=== PATIENT | female | born 1945 | race Caucasian/White ===

== ENCOUNTER 2016-12-11 10:16 | Emergency (ER) | payer MEDICARE ==
[2016-12-11 10:53] LABS: Bilirubin Negative (Negative); Blood, Urine Trace (Negative); Glucose, Urine (Dipstick) Negative (Negative); Leukocyte Negative (Negative); Nitrite Negative (Negative); Protein, Urine (Dipstick) Negative (Neg-Trace); Urobilinogen 0.2 mg/dL (0.2-1.0)
[2016-12-11 10:58] LABS: Bacteria/HPF 1+ HPF (None Seen); Clarity Hazy (Clear); Renal Epithelial 0-3 HPF (0-3); Transitional Epithelial 0-3 HPF (0-3); Yeast-All Forms 2+ HPF (None Seen)
[2016-12-11] MEDS ORDERED: Phenazopyridine HCl 97.5 MG TABLET ONE (11:21)
[2016-12-11] MEDS ORDERED: Sulfameth/Trimethoprim DS 800-160mg TAB ONE (11:21)
[2016-12-11] MEDS ORDERED: Fluconazole 100 MG TAB ONE (11:21)
--- NOTE | 2016-12-11 11:51 | ERRECORD ---
[facility] EMERGENCY RECORD HPI UTI (10:38 LLDO) CHIEF COMPLAINT: Patient presents for evaluation of urinary tract infection signs or symptoms:, dysuria, frequency, hematuria, urine odor, Patient presents for evaluation of started about 10 days ago. had some left flank [ain with sx started but none now. several days ago had some hematuria but thinks that is from her scratching. HISTORIAN: History provided by patient, History provided by patient's spouse. LOCATION: Symptoms are generalized. QUALITY: Pain is dull in nature, described as aching, described as BURNING. SEVERITY: Maximum severity of symptoms severe, Currently symptoms are moderate. TIME COURSE: Sudden onset of symptoms, There has been no change in the patient's symptoms over time, are constant. ASSOCIATED WITH FEMALE: No associated abdominal pain, No associated chills, No associated diarrhea, No associated flank pain, No associated fever, No associated night sweats, No associated trauma, No associated vaginal bleeding, No associated vaginal discharge, No associated vomiting, Denies any other complaints. EXACERBATED BY: Patient's condition exacerbated by urination. RELIEVED BY: Patient's condition relieved by nothing. ROS CONSTITUTIONAL: Negative constitutional review of systems. (10:40 LLDO) EYES: Negative eye review of systems, Historian denies eye pain, denies eye redness, denies eye discharge. (10:42 LLDO) ENT: Negative ears, nose, throat review of systems, Historian denies epistaxis, denies rhinorrhea, denies sinus pain, denies sore throat. (10:42 LLDO) CARDIOVASCULAR: Negative cardiovascular review of systems, Historian denies chest pain, no radiation, Historian denies diaphoresis, denies syncope. (10:42 LLDO) RESPIRATORY: Negative respiratory review of systems, Historian denies cough, denies shortness of breath, denies sputum. (10:42 LLDO) GI: Historian denies abdominal pain, denies anorexia, denies appetite changes, denies constipation, denies diarrhea, denies hematemesis, denies hematochezia, denies jaundice, denies melena, denies nausea, denies stool changes, denies vomiting. (10:40 LLDO) GENITOURINARY FEMALE: Historian reports dysuria, reports frequency, reports hematuria, reports hesitancy, denies menorrhagia, denies metrorrhagia, denies , reports urgency, denies urine output changes, denies urinary retention, denies vaginal bleeding, denies vaginal discharge, reports vaginal itching. (10:40 LLDO) MUSCULOSKELETAL: Negative musculoskeletal review of systems, Historian denies arthralgias, denies back pain, denies injury, denies myalgias, denies neck pain. (10:42 LLDO) &a-1R&a+25V*p+0X*e2188W*c202B*c15G*c2P*p-0X&a-25V&a+1R Name: Antonette Jacques : 1945 F71 MedRec: [id number] AcctNum: [id number] Prepared: Rosaline Dec 11, 2016 15:15 by Interface Page 1 of 4 pMD [facility] EMERGENCY RECORD SKIN: Negative skin review of systems, Historian denies cellulitis, denies rash, denies skin changes, denies skin lesions. (10:42 LLDO) NEUROLOGIC: Negative neurologic review of systems, Historian denies confusion, denies dizziness, denies focal weakness, denies mental status changes. (10:42 LLDO) HEMO/LYMPHATIC: Normal hematologic/lymphatic system review, Historian denies abnormal blood clotting, denies gum bleeding, denies petechiae. (10:42 LLDO) ALLERGIC/IMMUNOLOGIC: Normal allergy/immunologic system review, Historian denies eczema, denies environmental allergies, denies food allergies. (10:42 LLDO) PSYCHIATRIC: Negative psychiatric review of systems, Historian denies alcohol abuse, denies anxiety, denies depression, denies drug abuse, denies hallucinations. (10:42 LLDO) NOTES: All systems reviewed, negative except as described above. (10:40 LLDO) PAST MEDICAL HISTORY MEDICAL HISTORY: Past medical history includes endocrine disease, hypothyroidism, Past medical history includes history of hypertension. (10:27 SCHI) FEMALE SURGICAL HISTORY: Surgical history of hysterectomy, Surgical history of thyroidectomy. (10:27 SCHI) SOCIAL HISTORY: Patient denies alcohol use, Patient denies drug use, Patient has no smoking history. (10:27 SCHI) NOTES: Nursing records reviewed, Agree with nursing records, Medication list reviewed. (10:42 LLDO) KNOWN ALLERGIES No Known Drug Allergies CURRENT MEDICATIONS No recorded medications VITAL SIGNS (10:23 ADEA) VITAL SIGNS: BP: 177/85, Pulse: 97, Resp: 20, Temp: 98.7 (Tympanic), Pain: 0, O2 sat: 98 on Room Air, Time: 12/11/2016 10:23. PHYSICAL EXAM CONSTITUTIONAL: Vital signs reviewed, Patient afebrile, Pulse normal, Blood pressure, BP ELEVATED, Respiratory rate normal, Patient appears non toxic, Patient appears in pain, in moderate pain distress, Patient alert and oriented to person, place and time. (10:41 LLDO) HEAD: Head exam normal, Head exam included findings of head atraumatic, normocephalic. (10:42 LLDO) EYES: Eye exam normal, Eye exam included findings of eyelids normal to inspection, Pupils equally round and reactive to light, &a-1R&a+25V*p+0X*g8905C*c202B*c15G*c2P*p-0X&a-25V&a+1R Name: Antonette Jacques : 1945 F71 MedRec: [id number] AcctNum: [id number] Prepared: Rosaline Dec 11, 2016 15:15 by Interface Page 2 of 4 pMD [facility] EMERGENCY RECORD Extraocular muscles intact. (10:42 LLDO) ENT: ENT exam normal, Ear exam normal, Nose exam normal. (10:42 LLDO) NECK: Neck exam normal, Neck exam included findings of normal range of motion, Trachea midline, no meningeal signs, no tenderness. (10:42 LLDO) RESPIRATORY CHEST: Respiratory and chest exam normal, Respiratory exam included findings of, Chest exam included findings of chest movement symmetrical, Chest expansion equal. (10:42 LLDO) CARDIOVASCULAR: Cardiovascular assessment normal, Cardiovascular exam included findings of heart rate regular rate and rhythm, Heart sounds normal. (10:42 LLDO) ABDOMEN FEMALE: Abdominal exam included findings of abdomen nontender, Bowel sounds normal, Liver normal, Spleen normal, no distension, no mass, no pulsatile masses, no peritoneal signs, Rovsing's sign absent. (10:41 LLDO) BACK: Back exam normal, Back exam included findings of normal inspection, range of motion normal. (10:42 LLDO) UPPER EXTREMITY: Upper extremity exam normal, Upper extremity exam included findings of inspection normal, Range of motion normal. (10:42 LLDO) LOWER EXTREMITY: Lower extremity exam normal, Lower extremity exam included findings of inspection normal, Range of motion normal. (10:42 LLDO) NEURO: Neuro exam normal, Neuro exam findings include patient oriented to person, place and time, Speech normal, Esther coma scale 15. (10:42 LLDO) SKIN: Skin exam normal, Skin exam included findings of skin warm, dry, and normal in color, no rash. (10:42 LLDO) PSYCHIATRIC: Psychiatric exam normal, Psychiatric exam included findings of patient oriented to person place and time, Normal affect. (10:42 LLDO) MEDICATION ADMINISTRATION SUMMARY Drug Name: Septra DS, Dose Ordered: 1 tab(s), Route: Oral, Status: Ordered, Time: 11:04 12/11/2016, Drug Name: Pyridium, Dose Ordered: 200 mg, Route: Oral, Status: Ordered, Time: 11:04 12/11/2016, Drug Name: Diflucan, Dose Ordered: 200 mg, Route: Oral, Status: Ordered, Time: 11:03 12/11/2016, Detailed record available in Medication Service section. PROBLEM LIST No recorded problems DIAGNOSIS (11:05 LLDO) FINAL: PRIMARY: UTI SITE NOT SPECIFIED, ADDITIONAL: Vaginal candidiasis. &a-1R&a+25V*p+0X*a0900L*c202B*c15G*c2P*p-0X&a-25V&a+1R Name: Antonette Jacques : 1945 F71 MedRec: [id number] AcctNum: [id number] Prepared: Rosaline Dec 11, 2016 15:15 by Interface Page 3 of 4 pMD [facility] EMERGENCY RECORD PRESCRIPTION (11:09 LLDO) Monistat 7: COMBINATION PACK, PREFILLED APPL.& CREAM : 2 % (100 mg)-2 % (9 gram) : VAGINAL : Quantity: 1 Unit: chrissy Route: VAGINAL Schedule: See Notes Dispense: 1 May substitute. Refills: No Refills . NOTES: take as directed on package. Pyridium: TABLET : 100 mg : ORAL : Quantity: 1 Unit: tab(s) Route: ORAL Schedule: every 8 hours PRN Dispense: 15 May substitute. Refills: 1 . Septra DS: TABLET : 800 mg-160 mg : ORAL : Quantity: 1 Unit: tab(s) Route: ORAL Schedule: 2 times a day (before meals) Dispense: 20 Unit: tab(s) May substitute. Refills: No Refills . Tylenol-Codeine #3: TABLET : 300 mg-30 mg : ORAL : Quantity: 1-2 Unit: tab(s) Route: ORAL Schedule: every 4 hours prn Dispense: 24 Unit: tab(s) May substitute. Refills: No Refills . DISPOSITION PATIENT: Disposition Type: Discharge, Disposition: *Discharge Home. (11:05 TIFFANY) Patient left the department. (11:46 SIXTO) Blanco: CARLTON=JORDON Paul, Paxton ALLEN=MD Luís, Manan HENSON=JORDON Spann, Margaritaa &a-1R&a+25V*p+0X*n0659R*c202B*c15G*c2P*p-0X&a-25V&a+1R Name: Antonette Jacques : 1945 F71 MedRec: [id number] AcctNum: [id number] Prepared: Rosaline Dec 11, 2016 15:15 by Interface Page 4 of 4 pMD MTDD
--- NOTE | 2016-12-11 11:55 | PICIS ---
[facility] EMERGENCY RECORD TRIAGE (10:26 ADEA) TRIAGE NOTES: DISCHARGE POSSIBLE YEAST. (10:26 ADEA) PATIENT: NAME: Antonette Jacques, AGE: 71, GENDER: female, : Mon1945, TIME OF GREET: Sun Dec 11, 2016 10:17, PREFERRED LANGUAGE: Frisian, ETHNICITY: Not or , ECODE BILLING MAP: [facility], SSN: [id number], Zip Code: [address], KG WEIGHT: 82.10, PHONE: , , , PERSON ID: [id number], PCP: DR NELSON. (10:26 ADEA) COMPLAINT: DISCHARGE. (10:26 ADEA) ADMISSION: URGENCY: 4 Non Urgent, ADMISSION SOURCE: Home, TRANSPORT: Walk-in, BED: ED -05. (10:26 ADEA) ASSESSMENT: Assessment: ALERT AND ORIENTED X 4, SKIN WARM AND DRY RESP EVEN AND UNLABORED,. (10:27 SCHI) TRIAGE SCREENING: Patient denies suicidal ideation, Patient denies presence of domestic violence. (10:27 SCHI) PROVIDERS: TRIAGE NURSE: Paxton Paul RN. (10:26 ADEA) VITAL SIGNS: BP 177/85, Pulse 97, Resp 20, Temp 98.7, (Tympanic), Pain 0, O2 Sat 98, on Room Air, Time 12/11/2016 10:23. (10:23 ADEA) KNOWN ALLERGIES No Known Drug Allergies CURRENT MEDICATIONS No recorded medications VITAL SIGNS (10:23 ADEA) VITAL SIGNS: BP: 177/85, Pulse: 97, Resp: 20, Temp: 98.7 (Tympanic), Pain: 0, O2 sat: 98 on Room Air, Time: 12/11/2016 10:23. NURSING ASSESSMENT: GENITOURINARY (10:33 SCHI) CONSTITUTIONAL: Patient arrives ambulatory, Gait steady, History obtained from patient, Patient appears comfortable, Patient cooperative, Patient alert, Oriented to person, place and time, Skin warm, Skin dry, Skin normal in color, Mucous membranes pink, Mucous membranes moist, Patient is well-groomed, Patient complains of PAIN,PRESSURE, BURNING WITH URINATION. PAIN FEMALE: burning pain, itching pain, to the vagina. GENITOURINARY FEMALE: Associated with urinary complaints , burning. ABDOMEN: Abdomen soft, non-tender, no associated nausea. NOTES: Emotional support needed and given, Patient tolerated procedure well. SAFETY: Side rails up, Cart/Stretcher in lowest position, Family at bedside, Hospital ID band on. NURSING PROCEDURE: [facility] (10:37 [facility]) PATIENT IDENTIFIER: Patient actively involved in identification process, Patient's identity verified by patient stating name, &a-1R&a+25V*p+0X*y6075M*c202B*c15G*c2P*p-0X&a-25V&a+1R Name: Antonette Jacques : 1945 F71 MedRec: [id number] AcctNum: [id number] Prepared: Rosaline Dec 11, 2016 15:22 by Interface Page 1 of 6 pMD [facility] EMERGENCY RECORD Patient's identity verified by patient stating date, Patient's identity verified by hospital ID bracelet. URINE COLLECTION FEMALE: Urine collected by mid-stream clean catch, urine yellow in color, Specimen labeled in the presence of the patient and sent to lab. SAFETY: Side rails up, Cart/Stretcher in lowest position, Family at bedside, Hospital ID band on. ORDER DETAILS Order Name: Urinalysis w/ Rflx Microscopic, Status: Active, Time: 10:37 12/11/2016, User: [facility], - Ordered for: MD Staley Lloyd, - Entered by: JORDON Spann albert - Rosaline Dec 11, 2016 10:37, - Quantity: 1. MEDICATION ADMINISTRATION SUMMARY Drug Name: Septra DS, Dose Ordered: 1 tab(s), Route: Oral, Status: Ordered, Time: 11:04 12/11/2016, Drug Name: Pyridium, Dose Ordered: 200 mg, Route: Oral, Status: Ordered, Time: 11:04 12/11/2016, Drug Name: Diflucan, Dose Ordered: 200 mg, Route: Oral, Status: Ordered, Time: 11:03 12/11/2016, Detailed record available in Medication Service section. MEDICATION SERVICE Diflucan: Order: Diflucan (fluconazole) - Dose: 200 mg : Oral Schedule: Now Ordered by: Manan Staley MD Entered by: MD Rosaline Herrera Dec 11, 2016 11:03 , Acknowledged by: JORDON Skaggs Dec 11, 2016 11:19. Pyridium: Order: Pyridium (phenazopyridine HCl) - Dose: 200 mg : Oral Schedule: Now Ordered by: Manan Staley MD Entered by: MD Rosaline Herrera Dec 11, 2016 11:04 , Acknowledged by: JORDON Skaggs Dec 11, 2016 11:19. Septra DS: Order: Septra DS (sulfamethoxazole/trimethoprim) - Dose: 1 tab(s) : Oral Schedule: Now Ordered by: Manan Staley MD Entered by: MD Rosaline Herrera Dec 11, 2016 11:04 , Acknowledged by: JORDON Skaggs Dec 11, 2016 11:19. HPI UTI (10:38 LLDO) CHIEF COMPLAINT: Patient presents for evaluation of urinary tract infection signs or symptoms:, dysuria, frequency, hematuria, urine odor, &a-1R&a+25V*p+0X*g9403O*c202B*c15G*c2P*p-0X&a-25V&a+1R Name: Antonette Jacques : 1945 F71 MedRec: [id number] AcctNum: [id number] Prepared: Rosaline Dec 11, 2016 15:22 by Interface Page 2 of 6 pMD [facility] EMERGENCY RECORD Patient presents for evaluation of started about 10 days ago. had some left flank [ain with sx started but none now. several days ago had some hematuria but thinks that is from her scratching. HISTORIAN: History provided by patient, History provided by patient's spouse. LOCATION: Symptoms are generalized. QUALITY: Pain is dull in nature, described as aching, described as BURNING. SEVERITY: Maximum severity of symptoms severe, Currently symptoms are moderate. TIME COURSE: Sudden onset of symptoms, There has been no change in the patient's symptoms over time, are constant. ASSOCIATED WITH FEMALE: No associated abdominal pain, No associated chills, No associated diarrhea, No associated flank pain, No associated fever, No associated night sweats, No associated trauma, No associated vaginal bleeding, No associated vaginal discharge, No associated vomiting, Denies any other complaints. EXACERBATED BY: Patient's condition exacerbated by urination. RELIEVED BY: Patient's condition relieved by nothing. ROS CONSTITUTIONAL: Negative constitutional review of systems. (10:40 LLDO) EYES: Negative eye review of systems, Historian denies eye pain, denies eye redness, denies eye discharge. (10:42 LLDO) ENT: Negative ears, nose, throat review of systems, Historian denies epistaxis, denies rhinorrhea, denies sinus pain, denies sore throat. (10:42 LLDO) CARDIOVASCULAR: Negative cardiovascular review of systems, Historian denies chest pain, no radiation, Historian denies diaphoresis, denies syncope. (10:42 LLDO) RESPIRATORY: Negative respiratory review of systems, Historian denies cough, denies shortness of breath, denies sputum. (10:42 LLDO) GI: Historian denies abdominal pain, denies anorexia, denies appetite changes, denies constipation, denies diarrhea, denies hematemesis, denies hematochezia, denies jaundice, denies melena, denies nausea, denies stool changes, denies vomiting. (10:40 LLDO) GENITOURINARY FEMALE: Historian reports dysuria, reports frequency, reports hematuria, reports hesitancy, denies menorrhagia, denies metrorrhagia, denies , reports urgency, denies urine output changes, denies urinary retention, denies vaginal bleeding, denies vaginal discharge, reports vaginal itching. (10:40 LLDO) MUSCULOSKELETAL: Negative musculoskeletal review of systems, Historian denies arthralgias, denies back pain, denies injury, denies myalgias, denies neck pain. (10:42 LLDO) SKIN: Negative skin review of systems, Historian denies cellulitis, denies rash, denies skin changes, denies skin lesions. (10:42 LLDO) NEUROLOGIC: Negative neurologic review of systems, Historian &a-1R&a+25V*p+0X*v9050Z*c202B*c15G*c2P*p-0X&a-25V&a+1R Name: Antonette Jacques : 1945 F71 MedRec: [id number] AcctNum: [id number] Prepared: Rosaline Dec 11, 2016 15:22 by Interface Page 3 of 6 pMD [facility] EMERGENCY RECORD denies confusion, denies dizziness, denies focal weakness, denies mental status changes. (10:42 LLDO) HEMO/LYMPHATIC: Normal hematologic/lymphatic system review, Historian denies abnormal blood clotting, denies gum bleeding, denies petechiae. (10:42 LLDO) ALLERGIC/IMMUNOLOGIC: Normal allergy/immunologic system review, Historian denies eczema, denies environmental allergies, denies food allergies. (10:42 LLDO) PSYCHIATRIC: Negative psychiatric review of systems, Historian denies alcohol abuse, denies anxiety, denies depression, denies drug abuse, denies hallucinations. (10:42 LLDO) NOTES: All systems reviewed, negative except as described above. (10:40 LLDO) PAST MEDICAL HISTORY MEDICAL HISTORY: Past medical history includes endocrine disease, hypothyroidism, Past medical history includes history of hypertension. (10:27 SCHI) FEMALE SURGICAL HISTORY: Surgical history of hysterectomy, Surgical history of thyroidectomy. (10:27 SCHI) SOCIAL HISTORY: Patient denies alcohol use, Patient denies drug use, Patient has no smoking history. (10:27 SCHI) NOTES: Nursing records reviewed, Agree with nursing records, Medication list reviewed. (10:42 LLDO) PHYSICAL EXAM CONSTITUTIONAL: Vital signs reviewed, Patient afebrile, Pulse normal, Blood pressure, BP ELEVATED, Respiratory rate normal, Patient appears non toxic, Patient appears in pain, in moderate pain distress, Patient alert and oriented to person, place and time. (10:41 LLDO) HEAD: Head exam normal, Head exam included findings of head atraumatic, normocephalic. (10:42 LLDO) EYES: Eye exam normal, Eye exam included findings of eyelids normal to inspection, Pupils equally round and reactive to light, Extraocular muscles intact. (10:42 LLDO) ENT: ENT exam normal, Ear exam normal, Nose exam normal. (10:42 LLDO) NECK: Neck exam normal, Neck exam included findings of normal range of motion, Trachea midline, no meningeal signs, no tenderness. (10:42 LLDO) RESPIRATORY CHEST: Respiratory and chest exam normal, Respiratory exam included findings of, Chest exam included findings of chest movement symmetrical, Chest expansion equal. (10:42 LLDO) CARDIOVASCULAR: Cardiovascular assessment normal, Cardiovascular exam included findings of heart rate regular rate and rhythm, Heart sounds normal. (10:42 LLDO) ABDOMEN FEMALE: Abdominal exam included findings of abdomen &a-1R&a+25V*p+0X*h9495T*c202B*c15G*c2P*p-0X&a-25V&a+1R Name: Antonette Jacques : 1945 F71 MedRec: [id number] AcctNum: [id number] Prepared: Rosaline Dec 11, 2016 15:22 by Interface Page 4 of 6 pMD [facility] EMERGENCY RECORD nontender, Bowel sounds normal, Liver normal, Spleen normal, no distension, no mass, no pulsatile masses, no peritoneal signs, Rovsing's sign absent. (10:41 LLDO) BACK: Back exam normal, Back exam included findings of normal inspection, range of motion normal. (10:42 LLDO) UPPER EXTREMITY: Upper extremity exam normal, Upper extremity exam included findings of inspection normal, Range of motion normal. (10:42 LLDO) LOWER EXTREMITY: Lower extremity exam normal, Lower extremity exam included findings of inspection normal, Range of motion normal. (10:42 LLDO) NEURO: Neuro exam normal, Neuro exam findings include patient oriented to person, place and time, Speech normal, Esther coma scale 15. (10:42 LLDO) SKIN: Skin exam normal, Skin exam included findings of skin warm, dry, and normal in color, no rash. (10:42 LLDO) PSYCHIATRIC: Psychiatric exam normal, Psychiatric exam included findings of patient oriented to person place and time, Normal affect. (10:42 LLDO) EVENTS TRANSFER: Triage to Emergency Main ED -05. (Rosaline Dec 11, 2016 10:26 ADEA) Emergency Main ED -05 to Holding. (11:45 LLDO) Removed from Emergency Holding. (11:46 SCHI) PROBLEM LIST No recorded problems DIAGNOSIS (11:05 LLDO) FINAL: PRIMARY: UTI SITE NOT SPECIFIED, ADDITIONAL: Vaginal candidiasis. DISPOSITION PATIENT: Disposition Type: Discharge, Disposition: *Discharge Home. (11:05 LLDO) Patient left the department. (11:46 SCHI) INSTRUCTION (11:10 LLDO) DISCHARGE: UTI CYSTITIS FEMALE ADULT. FOLLOWUP: Follow up with Primary Care Physician in 10-14 days. SPECIAL: Follow-up with your PCP for re-evaluation. PRESCRIPTION (11: DO) Monistat 7: COMBINATION PACK, PREFILLED APPL.& CREAM : 2 % (100 mg)-2 % (9 gram) : VAGINAL : Quantity: 1 Unit: chrissy Route: VAGINAL Schedule: See Notes Dispense: 1 May substitute. Refills: No Refills . NOTES: take as directed on package. Pyridium: TABLET : 100 mg : ORAL : Quantity: 1 Unit: &a-1R&a+25V*p+0X*m2431C*c202B*c15G*c2P*p-0X&a-25V&a+1R Name: Antonette Jacques : 1945 F71 MedRec: [id number] AcctNum: [id number] Prepared: Rosaline Dec 11, 2016 15:22 by Interface Page 5 of 6 pMD [facility] EMERGENCY RECORD tab(s) Route: ORAL Schedule: every 8 hours PRN Dispense: 15 May substitute. Refills: 1 . Septra DS: TABLET : 800 mg-160 mg : ORAL : Quantity: 1 Unit: tab(s) Route: ORAL Schedule: 2 times a day (before meals) Dispense: 20 Unit: tab(s) May substitute. Refills: No Refills . Tylenol-Codeine #3: TABLET : 300 mg-30 mg : ORAL : Quantity: 1-2 Unit: tab(s) Route: ORAL Schedule: every 4 hours prn Dispense: 24 Unit: tab(s) May substitute. Refills: No Refills . ADMIN (: [facility]) DIGITAL SIGNATURE: MD Staley Lloyd. Blanco: CARLTON=JORDON Paul, Paxton ALELN=MD Staley Lloyd SCHI=JORDON Spann, Slinda &a-1R&a+25V*p+0X*i3446R*c202B*c15G*c2P*p-0X&a-25V&a+1R Name: Antonette Jacques : 1945 F71 MedRec: [id number] AcctNum: [id number] Prepared: Rosaline Dec 11, 2016 15:22 by Interface Page 6 of 6 pMD [facility] MEDICATION RECONCILIATION You were seen in the Emergency Department on: Rosaline Dec 11, 2016 KNOWN ALLERGIES No Known Drug Allergies Notes from the emergency department Reviewed with family Reviewed with patient PRESCRIPTIONS (4) Printed (4) Monistat 7 : COMBINATION PACK, PREFILLED APPL.& CREAM : 2 % (100 mg)-2 % (9 gram) : VAGINAL Quantity: 1, Unit: application, Route: VAGINAL, Schedule: See Notes, Dispense: 1 Pyridium : TABLET : 100 mg : ORAL Quantity: 1, Unit: tab(s), Route: ORAL, Schedule: every 8 hours PRN, Dispense: 15 Septra DS : TABLET : 800 mg-160 mg : ORAL Quantity: 1, Unit: tab(s), Route: ORAL, Schedule: 2 times a day (before meals), Dispense: 20 Unit: tab(s) &a-1R&a+25V*p+0X*m8968L*c202B*c15G*c2P*p-0X&a-25V&a+1R Name: Antonette Jacques : 1945 F71 MedRec: [id number] AcctNum: [id number] Prepared: Rosaline Dec 11, 2016 15:22 by Interface pMD [facility]
== END 2016-12-11 11:27 | disposition home or self-care (01) ==
LOC: MADERS 10:16
DX: N39.0 Urinary tract infection, site not specified (principal); B37.3 Candidiasis of vulva and vagina; E03.9 Hypothyroidism, unspecified; I10 Essential (primary) hypertension
CPT/HCPCS: 81003; 81015; 87086; 99283

== ENCOUNTER 2023-11-13 09:54 | Emergency (ER) | payer OTHER, MEDICARE | END 2023-11-13 10:57 | disposition home or self-care (01) | LOC: MADERS 09:54 | DX: M54.50 Low back pain, unspecified (principal); E03.9 Hypothyroidism, unspecified; I10 Essential (primary) hypertension; Z79.899 Other long term (current) drug therapy; W01.10XA Fall on same level from slipping, tripping and stumbling with subsequent striking against unspecified object, initial encounter | CPT/HCPCS: 72100 ==